=== PATIENT | male | born 2005 | race Two or more races ===

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

== ENCOUNTER 2025-01-11 17:20 | Emergency (ER) | payer MEDICAID, SELFPAY ==
[2025-01-11 17:38] VITALS: BP 136/87; PULSE 128; RESP 19; TEMP 37.9; O2SAT 100; BMI 25.1
--- NOTE | 2025-01-11 17:57 | XR_ITS ---
Examination: PA lateral chest 2 views Technique: Upright PA lateral chest 2 views Date and time: January 11, 2025 1831 hrs., Comparison December 22, 2020 Indications: Shortness of breath today. Findings: Early pneumonia left base Normal heart size Right lung clear Intact osseous structures Impression: Early pneumonia left base
--- NOTE | 2025-01-11 17:58 | PD.EDRME ---
Rapid Medical Screening Exam E Arrival date/time: 01/11/25 17:20 19-year-old male presents to the emergency department for complaints of fever generalized body ache sore throat and dysuria Chief Complaint: Flu Like Symptoms Vital signs: Vital Signs Temperature 100.2 F 01/11/25 17:38 Pulse Rate 128 H 01/11/25 17:38 Respiratory Rate 19 01/11/25 17:38 Blood Pressure 136/87 H 01/11/25 17:38 Pulse Oximetry (%) 100 01/11/25 17:38 Oxygen Delivery Method Room Air 01/11/25 17:38
[2025-01-11] MEDS: KETOROLAC INJ 60 MG/2 ML VIAL 30 MG IM (18:11)
[2025-01-11] MEDS: ACETAMINOPHEN 500 MG TABLET 1000 MG PO (18:11)
[2025-01-11 18:13] LABS: Lactate (Lactic Acid) 1.4 mMol/L (0.4-2.0)
[2025-01-11 18:14] LABS: Basophils # (Auto) 0.0 Thou/mm3 (0.0-0.2); Basophils % (Auto) 0 % (0-2.5); Eosinophils # (Auto) 0.0 Thou/mm3 (0.0-0.5); Eosinophils % (Auto) 0 % (0-10); Hematocrit 47.2 % (41.0-53.0); Hemoglobin 15.6 g/dL (13.5-16.0); Immature Granulocytes Auto 0.06 Thou/mm3 (0.00-0.00); Lymphocytes # (Auto) 1.0 Thou/mm3 (1.0-5.0); Lymphocytes % (Auto) 7 % (10-50); Mean Corpuscular HGB Conc 33.1 g/dl (31.0-37.0); Mean Corpuscular Hemoglobin 31.1 pg (25.0-35.0); Mean Corpuscular Volume 94 fL (80-100); Monocytes # (Auto) 0.8 Thou/mm3 (0.0-0.8); Monocytes % (Auto) 6 % (0-12); Neutrophils # (Auto) 11.2 Thou/mm3 (1.8-7.7); Neutrophils % (Auto) 86 % (37-80); Nucleated Red Blood Cell # 0.00 Thou/mm3 (0.00-0.00); Nucleated Red Blood Cell % 0 /100 WBC (0); Platelet Count 281 Thou/mm3 (140-440); RDW Standard Deviation 44.1 fL (35.1-43.9); Red Blood Count 5.02 Miln/mm3 (4.50-5.90); White Blood Count 13.1 Thou/mm3 (4.5-11.0)
[2025-01-11 18:32] LABS: Strep A Rapid Negative (Negative)
[2025-01-11 18:39] LABS: Alanine Aminotransferase 11 U/L (10-49); Albumin, Serum 4.8 gm/dL (3.5-5.0); Albumin/Globulin Ratio 1.8 (1.2-2.2); Alkaline Phosphatase 74 U/L (46-116); Anion Gap 12 (7-16); Aspartate Amino Transferase 17 U/L (0-34); BUN/Creatinine Ratio 7 Ratio (12-20); Bilirubin,Total 0.9 mg/dL (0.3-1.2); Blood Urea Nitrogen 8 mg/dL (9-23); Calcium 9.8 mg/dL (8.3-10.6); Calcium (Corrected) 9.8 mg/dL (8.5-10.1); Carbon Dioxide 25.2 mMol/L (20.0-31.0); Chloride 102 mMol/L (98-107); Creatinine (Component) 1.2 mg/dL (0.6-1.3); Estimated Creatinine Clearance 99.0 mL/min (>60); Globulin 2.7 gm/dL (2.3-3.5); Glucose 121 mg/dL (74-106); Osmolality,Calculated 276 (275-295); Potassium 4.2 mMol/L (3.4-5.1); Procalcitonin 0.12 ng/ml (0.0-0.49); Sodium 139 mMol/L (136-145); Total Protein 7.5 gm/dL (5.7-8.2); eGFR > 60 See Note
[2025-01-11 18:47] LABS: Collection Type, Urine Clean Catch
[2025-01-11 18:51] LABS: Bacteria,Urine Rare; Bilirubin,Urine Negative (Negative); Blood,Urine Negative (Negative); Clarity,Urine Clear (Clear/Hazy); Color,Urine Yellow (Lt Yel-Yel); Glucose, Urine Negative (Negative); Ketones,Urine 2+ (Negative); Leukocyte Esterase,Urine Negative (Negative); Nitrite,Urine Negative (Negative); PH,Urine 8.5 (5.0-7.0); Protein,Urine 1+ (Neg - Trace); RBC,Urine 20 /hpf (0-3); Specific Gravity,Urine 1.026 (1.001-1.035); Squamous Epithelial Cell,Urine < 1 /hpf (0-5); Urobilinogen,Urine Negative mg/dL (0.0-1.0); WBC,Urine 1 /hpf (0-5)
--- NOTE | 2025-01-11 19:36 | PD.EDURI ---
Upper Respiratory Inf. RME/HPI General Chief Complaint: Flu Like Symptoms Stated Complaint: FEVER, ZUNIGA, N/V Time Seen by Provider: 01/11/25 19:02 Arrival date/time: 01/11/25 17:20 RME / HPI RME / HPI Narrative: 19-year-old male presents to the emergency department for complaints of fever generalized body ache sore throat and dysuria. Onset of symptoms since yesterday, associated with headache, cough, and chest pain and coughing. Patient denies any ill contacts. Denies any other complaints no medication was taken prior to ER visit. Related Data Home Medications ?Medication ?Instructions ?Recorded ?Confirmed albuterol sulfate 90 mcg/actuation 2 puff inhalation Q6HR PRN asthma 06/16/15 08/18/21 aerosol inhaler (ProAir HFA) #0 inhalations Previous Rx's ?Medication ?Instructions ?Recorded amoxicillin 875 mg-potassium 1 tab PO BID #14 tabs 01/11/25 clavulanate 125 mg tablet ibuprofen 800 mg tablet 800 mg PO Q8H PRN pain #30 tabs 01/11/25 Allergies Allergy/AdvReac Type Severity Reaction Status Date / Time No Known Allergies Allergy Unknown Uncoded 05/23/24 20:39 Review of Systems Review of Systems Narrative Review of Systems: Review of system reviewed and within normal limits except mentioned in HPI ED Exam Narrative Physical exam: VITAL SIGNS: Reviewed. GENERAL APPEARANCE: Alert and interactive, follows commands, no acute distress, HEAD AND FACE: Non-traumatic. ENT: PERRL, pink conjunctivitis, eyelid no trauma, Mucous membrane moist. NECK: Supple, nontender, no nuchal rigidity. CHEST: No tenderness, no crepitus, no paradoxical movement, no retractions. LUNGS: Clear, well ventilated, symmetric, no rales, no wheezing, no ronchi, no stridor, good breath sounds bilaterally. HEART: Regular rate, regular rhythm, no murmur, no gallops. ABDOMEN: Soft, positive bowel sounds, nondistended, no guarding, nontender, no rebound, no masses, RECTAL: Deferred. GENITAL: Deferred. NEUROLOGICAL: Gross motor function intact sensory function intact, Appropriate for age. MUSCULOSKELETAL: low back nontender, full range of motion. EXTREMITIES: Nontender, full range of motion. SKIN: Color pink, dry, no rash, no lacerations, no abrasions, no contusions. LYMPHATICS: Deferred. Course Quality Measures none Orders Category Date Time Status Bedside COVID-19 Antigen Test NOW Care 01/11/25 17:57 Active Bedside Influenza A&B Antigen Test NOW Care 01/11/25 17:57 Completed XR chest 2V Stat Exams 01/11/25 17:57 Completed Blood Culture (Lab) Stat Lab 01/11/25 18:07 Received CBC Stat Lab 01/11/25 18:04 Completed Comprehensive Metabolic Panel Stat Lab 01/11/25 18:04 Completed Lactate (Lactic Acid) Stat Lab 01/11/25 18:04 Completed Procalcitonin Stat Lab 01/11/25 18:04 Completed Strep A Rapid Stat Lab 01/11/25 18:05 Completed Urinalysis Stat Lab 01/11/25 18:34 Completed Urine Culture Stat Lab 01/11/25 17:57 Received Acetaminophen Tab [Tylenol ES Tab] Med 01/11/25 17:57 Discontinued 1,000 mg PO X1 ONE Amoxicillin/Pot Clav 875 [Augmentin 875] Med 01/11/25 19:34 Once 1 tab PO X1 ONE DiphenhydrAMINE [Benadryl] Med 01/11/25 19:34 Once 50 mg PO X1 ONE Ibuprofen Tab [Motrin Tab] Med 01/11/25 19:34 Once 800 mg PO X1 ONE Ketorolac Inj [Toradol Inj] Med 01/11/25 17:57 Discontinued 30 mg IM X1 ONE Vital Signs Vital signs: Vital Signs Temperature 100.2 F 01/11/25 17:38 Pulse Rate 128 H 01/11/25 17:38 Respiratory Rate 19 01/11/25 17:38 Blood Pressure 136/87 H 01/11/25 17:38 Pulse Oximetry (%) 100 01/11/25 17:38 Oxygen Delivery Method Room Air 01/11/25 17:38 Upper Respiratory Infection MDM Narrative MDM Narrative:: 19-year-old male presents to the emergency department for complaints of fever generalized body ache sore throat and dysuria. Onset of symptoms since yesterday, associated with headache, cough, and chest pain and coughing. Patient denies any ill contacts. Denies any other complaints no medication was taken prior to ER visit. Patient negative for COVID and strep and influenza. Patient workup today is significant for 13.1 leukocytosis. Initially was noted to be tachycardic 128. Prior to discharge patient's heart rate went down to 90. Urinalysis no UTI. Chest ray showed pneumonia. Currently patient is satting 100% on room air Patient appears nontoxic and hemodynamically stable .Decision to discharge the patient. The patient/family was given an opportunity to ask questions and understood their discharge instructions. Discharge instructions specifically included follow up provider and time frame, current and/or new medications and possible side effects, indications for sooner follow up or return to the emergency department, and the expected course of current diagnosis. Patient reports feeling better as well and giving evidence of significant clinical improvement, I believe patient is now a candidate for discharge. Patient data External records reviewed:: None Clinical information provided by:: patient Social determinants that could affect healthcare access:: none Patient has the following chronic illnesses:: None How is presenting disease/condition affected by chronic disease/condition?: no chronic disease Evaluation data The following diagnostics were reviewed and interpreted by me:: lab results and radiology exam(s) Lab and/or radiology exams considered but not ordered:: None Interpretation Summary: See results MDM Medications / Prescriptions Medications or Prescriptions considered but not ordered:: None Medication administrations:: Medication Administration History Discontinued Medications Acetaminophen (Acetaminophen 500 Mg Tablet) 1,000 mg PO X1 ONE Stop: 01/11/25 17:58 Last Admin: 01/11/25 18:11 Dose: 1,000 mg Documented By: SHERRELL Ketorolac Tromethamine (Ketorolac Inj 60 Mg/2 Ml Vial) 30 mg IM X1 ONE Stop: 01/11/25 17:58 Last Admin: 01/11/25 18:11 Dose: 30 mg Documented By: SHERRELL Tylenol, Toradol Consultations Consultation(s) initiated? (list below): No Diagnosis Upper Respiratory Differential Diagnosis: upper respiratory infection, bronchitis, influenza and other (Pneumonia) Most likely diagnosis given after review of the tests above:: Pneumonia Admission Indicated Admission indicated?: not indicated Admission Request Was there a request for admission?: No Disposition Plan Disposition Plan: Discharge Discharge Attestation Discharge Attestation: The patient and all family members were given an opportunity to ask questions and understood the discharge instructions. Discharge instructions specifically effects, indications for sooner follow up or return to the emergency department, and the expected course of current diagnosis. Patient condition: Stable Discharge Plan Plan Patient Disposition: HOME (Self Care) Discharge Disposition comment: Stable Prescriptions/Referrals Prescriptions/Med Rec: New amoxicillin-pot clavulanate 875-125 mg tablet 1 tab PO BID Qty: 14 0RF ibuprofen 800 mg tablet 800 mg PO Q8H PRN (Reason: pain) Qty: 30 0RF No Action albuterol sulfate [ProAir HFA] 8.5 GM HFA aerosol inhaler 2 puff Inhalation Q6HR PRN (Reason: asthma) Qty: 0 Referrals: Gee Win MD [Primary Care Provider, Family Practice] - In 1 week Problem List Clinical Impression: PNA (pneumonia) Patient/Caregiver Discharge Instructions Discharge Activity: activity as tolerated Education Materials: Treating Pneumonia Additional Instructions: Thank you for the opportunity for serving you today. You are stable for discharged . You are advised to: Follow-up with your PCP in 1 to 2 days Return to ED for worsening of symptoms Increase oral fluids Take medication as prescribed Print Language: Urdu Stand Alone Forms: [employer] Award Info., Patient Portal Info Letter SHIRA/JOSE Supervising Physician SHIRA/JOSE Supervising Physician: MD Miky
[2025-01-11] MEDS: AMOXICILLIN/POT CLAV 875 TABLET 1 TAB PO (20:02)
[2025-01-11] MEDS: IBUPROFEN TAB 400 MG TABLET 800 MG PO (20:03)
[2025-01-11 20:04] VITALS: TEMP 37.5
[2025-01-11 20:21] VITALS: RESP 18; TEMP 37.5; O2SAT 96
== END 2025-01-11 20:22 | disposition home or self-care (01) ==
PROVIDERS: Nurse Practitioner Primary Care; Emergency Provider Emergency Medicine; PCP Family Medicine
DX: J18.9 Pneumonia, unspecified organism (principal)
CPT/HCPCS: 36415; 71046; 80053; 81001; 83605; 84145; 85025; 87040; 87086; 87400; 87651; 87811; 96372; 99283; J1885; A9270